=== PATIENT | male | born 1975 | race African-American/Black ===

== ENCOUNTER 2016-10-05 12:41 | Emergency (ER) | payer MEDICAID ==
[~2016-10-05] VITALS: Ht 182.9 cm; Wt 82.0 kg
[~2016-10-05 12:41] MED LIST: ACET-2178 PO; LORA2VIA33 PO
[2016-10-05 14:36] LABS: CLARITY URINE CLEAR (CLEAR); COLOR URINE YELLOW (YELLOW); GLUCOSE URINE NEGATIVE (NEGATIVE); KETONES URINE NEGATIVE (NEGATIVE); LEUKOCYTE ESTERASE URINE TRACE (NEGATIVE); NITRITE URINE NEGATIVE (NEGATIVE); OCCULT BLOOD URINE 1+ (NEGATIVE); PROTEIN URINE 2+ (NEGATIVE); SPECIFIC GRAVITY URINE 1.007 (1.005-1.030); UROBILINOGEN URINE 0.2 E.U./dL (0.2-1.0)
[2016-10-05] MEDS ORDERED: ONDANSETRON 4MG ODT PO ONE (14:45)
[2016-10-05] MEDS ORDERED: HYDROCODONE/ACETAMINOPHEN 5/325MG TABLET PO ONE (14:45)
[2016-10-05 14:50] LABS: HEMATOCRIT. 32.3 % (42.0-52.0); HEMOGLOBIN. 10.7 g/dL (14.0-18.0); MEAN CORPUSCULAR HEMOGLOBIN 31.2 pg (28.0-32.0); MEAN CORPUSCULAR HGB CONC 33.2 g/dL (31.0-37.0); MEAN CORPUSCULAR VOLUME 94.2 fL (80.0-94.0); MEAN PLATELET VOLUME 7.6 fl (7.4-10.4); PLATELET 218 x1000/uL (130-400); RED BLOOD CELL COUNT 3.43 mill/uL (4.7-6.1); RED CELL DISTRIBUTION WIDTH 14.1 % (11.6-14.6); WHITE BLOOD COUNT 5.1 x1000/uL (4.5-11.0)
[2016-10-05 14:51] LABS: DIFFERENTIAL COMMENT 1
[2016-10-05 14:52] LABS: BACTERIA URINE NONE SEEN; RBC URINE 0-2 /hpf (0-2); SQUAMOUS EPITHELIAL CELL URINE RARE /lpf (RARE/1+)
[2016-10-05 15:04] LABS: ALANINE AMINOTRANSFERASE 64 IU/L (13-61); ALBUMIN 2.6 g/dL (3.4-5.0); ANION GAP 13; CALCIUM 7.3 mg/dL (8.5-10.1); CARBON DIOXIDE 22 mEq/L (21-32); CHLORIDE 109 mEq/L (98-107); INDEX HEMOLYSI 1 (1-3); INDEX ICTERIC 1 (1-4); INDEX LIPEMIC 1 (1-3); LIPASE 491 IU/L (73-393); UREA NITROGEN BLOOD 45 mg/dL (7-21); eGFR 9 mL/min (>60)
[2016-10-05 15:22] LABS: PLATELET ESTIMATE NORMAL
[2016-10-05 15:50] VITALS: BP 131/66
== END 2016-10-05 16:19 | disposition home or self-care (01) ==
LOC: ER 13:09
DX: N34.1 Nonspecific urethritis (principal); N18.6 End stage renal disease; B19.20 Unspecified viral hepatitis C without hepatic coma; F41.9 Anxiety disorder, unspecified; F12.10 Cannabis abuse, uncomplicated; K86.1 Other chronic pancreatitis
CPT/HCPCS: 36415; 80053; 81001; 83690; 85025; 99284; Q0162